=== PATIENT | male | born 1975 | race Caucasian/White ===

== ENCOUNTER → 2022-05-09 14:20 | Outpatient (CLI) | payer BC, SELFPAY ==
--- NOTE | ~2022-05-09 | XR_ITS ---
XR lumbar spine 2-3V DATE: 05/09/2022 14:42 INDICATION: Low back pain TECHNIQUE: AP, lateral, coned lateral lumbosacral views COMPARISON: None FINDINGS: Alignment of the lumbar spine. No fracture or bone destruction or spondylolisthesis. The in cluded lower thoracic and lumbar pedicles are intact. Moderate degenerative disc disease at L4-5. Remaining lumbar and lumbosacral interspaces are well pre served. The sacroiliac joints are intact. IMPRESSION: Moderate degenerative disc disease at L4-5 Reviewed, dictated and finalized at location B.
== END ==
PROVIDERS: PCP Physician Assistant; Visit Provider Physician Assistant
DX: M51.36 Other intervertebral disc degeneration, lumbar region (principal)
CPT/HCPCS: 72100

== ENCOUNTER 2022-07-22 10:34 | Emergency (ER) | payer BC, SELFPAY ==
--- NOTE | 2022-07-22 10:36 | ED.UPPEXIN ---
HPI - Extremity Injury (Upper) General Chief Complaint: Extremity Injury, Lower Stated Complaint: rt knee pain Time Seen by Provider: 07/22/22 10:36 Source: patient and RN notes reviewed History of Present Illness HPI narrative: Patient is a 46-year-old male who presents the urgent care with complaints of right knee pain. Patient states that yesterday he was bent over for approximately 5 minutes in a squat position doing yard work. Patient states when he went to stand up he heard a pop in the right knee and immediate pain. Patient states that he continued to ambulate on the knee and did not have any swelling or bruising to the area. Patient states that he has had continual pain since then and no relief overnight with ice and elevation. Patient denies of any known past injury or surgical intervention to the knee. No other acute complaints. No acute distress noted. Patient aware of the plan of care. Some parts of this dictation were generated by voice recognition software and may contain typographical and/or grammatical inaccuracies. Related Data Allergies Allergy/AdvReac Type Severity Reaction Status Date / Time Sulfa (Sulfonamide Allergy Unknown Verified 07/22/22 10:39 Antibiotics) Review of Systems Review of Systems: CONSTITUTIONAL: Denies fever, chills, or sweats. EYES: Denies visual changes, redness, or discharge. ENT: Denies rhinorrhea, congestion, sore throat, or otalgia. CARDIOVASCULAR: Denies chest pain, palpitations, or edema. RESPIRATORY: Denies cough or dyspnea. GASTROINTESTINAL: Denies abdominal pain, nausea, vomiting, or diarrhea. GENITOURINARY: Denies dysuria or hematuria. SKIN: Denies rash or itching. MUSCULOSKELETAL: Reports of right knee pain NEUROLOGIC: Denies headache, numbness, or weakness. All other systems reviewed are negative, except as documented in HPI. PMFSH Comments At the time of my signature, I reviewed and agree with the nursing past medical, surgical, social, and family history. There is no relevant family history pertinent to the patient complaint. Exam Narrative: GENERAL: This is a well-nourished, well-developed patient, in no apparent distress. HEAD: normocephalic, atraumatic. EYES: PERRL. Sclera clear/white. Vision is grossly intact. EARS: External ears normal NOSE: External nose normal with no obvious nasal discharge, nares without redness, no rhinorrhea. THROAT: Mucous membranes moist RESPIRATORY: Clear to auscultation. Breath sounds equal bilaterally. No wheezes, rales, or rhonchi. SKIN: warm, intact with no suspicious lesions or rash, good texture and turgor. NEURO: awake, alert, and oriented to person, place and time. There were no obvious focal neurologic abnormalities. EXTREMITIES: No obvious deformity, dislocation, edema, erythema or ecchymosis noted to the right knee/right lower extremity. Positive strong right pedal pulse with capillary refill less than 2 seconds. Range of motion of right lower extremity within normal limits with mild exacerbated pain to the medial and anterior patellar region on extension and flexion. Negative drawer test. Course Course Level of Care: Express Care Visit Vital Signs Vital signs: Vital Signs Temperature 98.9 F 07/22/22 10:43 Pulse Rate 75 07/22/22 10:43 Respiratory Rate 16 07/22/22 10:43 Blood Pressure 132/84 07/22/22 10:43 Pulse Oximetry 99 07/22/22 10:43 Temperature 98.9 F 07/22/22 10:43 Pulse Rate 75 07/22/22 10:43 Respiratory Rate 16 07/22/22 10:43 Blood Pressure 132/84 07/22/22 10:43 Pulse Oximetry 99 07/22/22 10:43 Reviewed MDM - Extremity Injury (Upper) MDM Narrative Medical decision making narrative: Advised the patient to wear an Watson wrap/knee brace to the knee for comfort and support. Complete the steroid regimen as prescribed. Continue ice/elevation and ibuprofen as needed for pain. Avoid any strenuous activity such as running, long walks, squatting or lifting. Follow-up with
[2022-07-22 10:43] VITALS: BP 132/84; PULSE 75; RESP 16; TEMP 37.2; O2SAT 99
== END 2022-07-22 11:00 | disposition home or self-care (01) ==
PROVIDERS: Emergency Provider Nurse Practitioner Family
DX: M25.561 Pain in right knee (principal)
CPT/HCPCS: 99213; G0463

== ENCOUNTER → 2022-10-03 13:41 | Outpatient (CLI) | payer BC, SELFPAY ==
--- NOTE | ~2022-10-03 | MR_ITS ---
EXAMINATION: MR knee RT wo con DATE: 10/03/2022 14:14 INDICATION: Medial right knee pain. Cumming a pop a few months ago. TECHNIQUE: Magnetic resonance imaging (MRI) of the right knee was performed without intravenous contr ast. Sequences included axial PD-weighted FS FSE, coronal PD-weighted FSE and PD-weighted FS FSE, sag ittal PD-weighted FSE, and sagittal T2-weighted FS FSE. COMPARISON: Right knee radiographs 07/25/2022. FINDINGS: Medial compartment: Horizontal cleavage type tear of the body and posterior horn, medial meniscus. Mild diffuse medial co mpartment cartilage thinning. Mild osteophytosis. Lateral compartment: Meniscus and cartilage intact. Mild osteophytosis. Patellofemoral compartment: Retinacula intact. Frayed cartilage on the medial facet, with near full-thickness fissuring. Ligaments and tendons: ACL, PCL, MCL, and LCL are intact. Remaining flexor and extensor tendons are intact and normal in chito earance. Fluid: No significant joint fluid. Small Roy's cyst. Osseous/other: No suspicious focal or diffuse marrow signal. IMPRESSION: 1. Horizontal cleavage type tear of the medial meniscus. 2. Mild osteoarthritis and chondromalacia patellae. Reviewed, dictated and finalized at location K. [employer]
== END ==
PROVIDERS: PCP Family Medicine; Visit Provider Orthopaedic Surgery
DX: M17.11 Unilateral primary osteoarthritis, right knee (principal); S83.206A Unspecified tear of unspecified meniscus, current injury, right knee, initial encounter; X58.XXXA Exposure to other specified factors, initial encounter
CPT/HCPCS: 73721

== ENCOUNTER 2022-11-06 00:18 | Day surgery (SDC) | payer BC, SELFPAY ==
[2022-10-26 14:59] VITALS: BMI 28.5
--- NOTE | 2022-10-26 15:03 | PC.NURSE ---
Report to the Outpatient Waiting Room, entrance under the green pavilion located off [facility], at time 0830 on date 11/06/22. Planned Procedure Time: 1030. Time changes happen often and if your time is changed the preop area will call you the afternoon before. - You and your visitor will be asked to self-screen and do not enter if you have any COVID symptoms. - Only one visitor is requested with a max of two and NO children visitors are allowed at this time. - The patient visitor may be requested to leave or wait in car when not with patient due to distancing restrictions. - A mask is optional within the hospital. Patients may have clear liquids (water, carbonated beverages, clear teas, apple juice) until 3 hours prior to surgery with a maximum of 20 ounces. - No food from midnight until time of surgery Take the following medications with a SIP of water the morning of surgery: N/A Medications to discontinue per physician: N/A Date to take last dose: N/A Please no make-up, nail german, hairspray, perfume, deodorant, or body powder the day of surgery. No jewelry (including any body piercings) or valuables the day of surgery, leave them at home. Please take a shower or bath the night before, or the morning of, surgery with an antibacterial soap. Wear comfortable, loose fitting clothing. - Jewelry must be removed prior to entering the operating room. Rings and piercings that are not removed may be cut off. - The hospital will not accept responsibility for valuables. - Please leave all valuables, including medications, at home the day of surgery. If you are going home after surgery, a licensed armored car guard and driver must drive you home. - NO public transportation without another adult if you receive anesthesia. - We recommend that an adult stay with you for 24 hours following discharge. - We also recommend that you do not drive, make important decision, drink alcoholic beverages, or take any drugs that were not prescribed by your health care provider for at least 24 hours after your discharge time. Follow any additional instructions given to you from your surgeon. If you or anyone in your household have experienced Covid symptoms in the past week, please notify your surgeon or the nurse liaison at the phone number below for possible testing. Telephone instructions given to PT - JOSE C BROOKS and asked if any additional questions and then verbalized understanding. Patient advised to call surgeon office or pre surgery nurse liaison [phone] if any additional questions.
--- NOTE | 2022-11-05 11:43 | WPDANESEPPF ---
Anes - Initial Pre Proc Eval Procedure: Operation Date: 11/06/22 07:30 Proposed Procedures p Right Knee Arthroscopy with Meniscectomy - Josué Voss MD Date/Time: 11/05/22 11:43 Surgeon: Josué Voss MD Pre Op Diagnosis: right knee medial meniscal tear Patient Data Age: 46 Gender: M Height: 1.83 m Weight: 95.25 kg Allergies Allergy/AdvReac Type Severity Reaction Status Date / Time Sulfa (Sulfonamide Allergy Unknown Verified 10/30/22 14:01 Antibiotics) Home Medications Medication Instructions Recorded Confirmed Type No Home Medications 10/26/22 10/30/22 History Patient hx anesthesia problems: none Family hx anesthesia problems: none Results Review: All pre-operative results and documents have been reviewed as part of the pre-operative evaluation. [facility] Family History Family History Father Alcoholism Hypertension Heart disease Grandparent Cancer Social History Social History Smoking packs per day: 1 Smoking cigarettes per day: 20.0 Years smoked: 8 Smoking pack-years: 8.00 Smoking status: Former smoker Tobacco type: cigarettes Smoking end date: 10/07/02 Alcohol intake: current Drinks per week: 14 Alcohol use details: 1-2/DAY Substance use: never Substance use type: does not use Living arrangements: with family Spiritual care concerns: No Anes - Eval Final PreProcedure Day of Procedure 11/05/22 11:43 Patient weight: overweight Heart: regular rate and rhythm Lungs: clear to auscultation Airway: Mallampati scale class II Neurological: alert and oriented Last oral intake: >/= 8 hours ASA classification: II Emergent: no Anesthetic plan: proceed Anesthesia type and monitoring: general LMA and standard monitoring Results Review: All pre-operative results and documents have been reviewed as part of the pre-operative evaluation. Informed Consent: The patient's anesthetic plan and its attendant risks and benefits were discussed with the patient/family/POA. Questions were solicited and answers provided to the satisfaction of the patient/family/POA.
[2022-11-06] VITALS (7 sets, daily range): BP systolic 118–137; BP diastolic 80–94; PULSE 55–72; RESP 12–16; TEMP 36.3–36.7; O2SAT 97–100
[2022-11-06] MEDS: LACTATED RINGERS 1,000 ML 30 ML IV CONT (06:45)
[2022-11-06] MEDS: ACETAMINOPHEN 500 MG TABLET 1000 MG PO (06:45)
[2022-11-06] MEDS: KETOROLAC 15 MG/ML VIAL (*BKC) IV PUSH (06:45)
--- NOTE | 2022-11-06 07:19 | WPDHPUPDATE1 ---
History and Physical Update Update Date/Time: 11/06/22 07:19 History and Physical has been reviewed, including an updated exam of the patient. There are NO changes in the patient's condition. Risks, benefits, and alternatives have been discussed and questions answered. Patient agrees to proceed with procedure.
[2022-11-06] MEDS: ceFAZolin 2 GM/D5W 50 ML 2 GM/50 ML BAG IVPB (07:27)
[2022-11-06] MEDS: LIDOCAINE HCL 1% PF 30 ML VIAL 10 ML INFILTRATE (07:45)
--- NOTE | 2022-11-06 08:24 | W.PM.PROC2 ---
Procedure Note - Detailed Date of Procedure 11/06/22 Pre-op Diagnosis right knee medial meniscal tear Post-op Diagnosis Same Procedure Performed Right knee arthroscopy partial medial meniscectomy Surgeon Josué Voss MD Anesthesia General Description of Procedure The patient was identified and proper site identified and he was taken to the operating room, transferred to the OR table placing him supine taking care to pad the torso and extremities. After general anesthetic induction and intubation, a nonsterile tourniquet was placed high on the right thigh but was not inflated. The right lower extremity was positioned, prepped and draped in usual sterile fashion. 10 cc of 1% lidocaine was injected into the subcutaneous tissue in the area of the portals at start of the procedure, and an additional 10 at the end. The portals were established and the arthroscopy was carried out. Articular cartilage in the anterior compartment showed some early fissuring particularly in the undersurface of the patella. Lateral articular meniscal cartilage was in good condition. Anterior posterior cruciate ligaments were in continuity. Mild fraying noted of the articular cartilage medially. Complex tearing of the medial meniscus from the posterior horn in the midbody with an unstable parrot-beak type flap was noted. Medial meniscus was contoured back to a stable rim with basket forceps and a shaver. Arthrocare Wand was used for intra-articular hemostasis. Remainder of the knee exam was unremarkable. The knee was flushed with a copious amount of arthroscopic fluid and equipment was removed. Portals were closed with three O nylon suture and a sterile dressing was applied. He tolerated the procedure well, was awakened, extubated and taken to recovery area in stable condition. There were no known intraoperative complications. Estimated blood loss was negligible; he received perioperative antibiotics. Estimated Blood Loss 5 Tourniquet Time 0 Drains No Packing No Pathology None sent Complications No immediate complications Condition Stable Disposition PACU [facility] Billing Surgery - Charge Forward: Surgery Billing ([id number])
== END 2022-11-06 10:15 | disposition home or self-care (01) ==
PROVIDERS: PCP Family Medicine; Visit Provider Orthopaedic Surgery
PROC: (CPT 29870; principal; 2022-11-06 07:30)
DX: S83.231A Complex tear of medial meniscus, current injury, right knee, initial encounter (principal); X50.0XXA Overexertion from strenuous movement or load, initial encounter; Z87.891 Personal history of nicotine dependence
CPT/HCPCS: 29881; A9270; J0690; J1100; J1885; J2250; J2405; J2704; J3010; J7120

== ENCOUNTER 2022-11-28 13:00 | Outpatient (RCR) | payer BC, SELFPAY ==
--- NOTE | 2022-11-08 15:52 | PTOPEVAL1 ---
Assessment and note entered by Richard Ochoa, PT, DPT Evaluation Information Assessment Status Evaluation Diagnosis R knee scope - partial medial meniscectomy Onset 11/06/22 Subjective Information Pt states his pain is well controlled with only Alvarez or ibuprofen. Pt has a primary office job. Pt reports he goes to the gym almost daily. He states he would like to return to this and playing sports with his kids. He states he used crutches for the first 2 days and stopped today. Reported Pain Level Pain Score 2: Self Report Assessment PT Clinical Summary John presents to therapy today for his initial evaluation with a diagnosis of a R knee partial medial meniscectomy on 11/06/22. Today he reports well controlled pain. He demonstrate active knee ROM of -3 deg to 100 deg. He ambulates without an assistive device but has decreased active knee flexion during ambulation. Skilled physical therapy services are indicated to address the deficits noted above and return to baseline function. Plan of Care Interventions Electrical Stimulation,Gait Training,Hot Pack/Cold Pack,Manual Therapy,Neuro Re-education,Patient/ Caregiver Educati,Therapeutic Activities, Therapeutic Exercise PT Services Indicated Yes Treatment Frequency and 2x/wk for 4 wks Duration These treatments will address the objective and functional deficits as defined above. The patient will be advanced safely and appropriately in order for the patient to progress towards his/her prior level of function. Additional exercises will be introduced and as well as a comprehensive home exercise program upon discharge, if needed, ?to ensure carryover of functional gains achieved in the clinic. This treatment plan has been reviewed and agreement upon by the patient.
--- NOTE | 2022-11-21 14:13 | PCPTNOTE ---
Pt cancelled his appointment today due to illness.
--- NOTE | 2022-11-28 15:13 | PTOPDC ---
Assessment and note entered by Richard Ochoa, PT, DPT Evaluation Information Assessment Status Discharge Diagnosis R knee scope - partial medial meniscectomy Onset 11/06/22 Subjective Information Pt states he feels he is doing pretty well. He states his knee is tender to the touch but does not hurt with ambulation or functional tasks. Pt reports 90% return to everyday tasks, he has not attempted running or agility activities. Reported Pain Level Pain Score 0: Self Report Assessment PT Clinical Summary John presents to therapy today for his progress report following 4 visits of skilled therapy to treat his R knee partial medial meniscectomy. Today he demonstrates LE ROM and strength that is equal bilaterally. He demonstrates no deviations with gait and stair ambulation. He has met all of his therapy goals and no longer requires skilled therapy services at this time. He will be discharged at this time with instructions to follow up with his referring provider if needed. Plan of Care PT Services Indicated Yes Treatment Frequency and to be discharge Duration
== END 2022-11-28 15:29 | disposition home or self-care (01) ==
LOC: ANHGOSHPT 13:00
PROVIDERS: PCP Family Medicine; Visit Provider Orthopaedic Surgery
DX: Z48.89 Encounter for other specified surgical aftercare (principal); Z98.890 Other specified postprocedural states
CPT/HCPCS: 97110; 97161; 97530